=== PATIENT | male | born 1970 | race Caucasian/White ===

== ENCOUNTER 2021-06-29 18:34 | Inpatient (IN) ==
[2021-06-29] MEDS ORDERED: Naloxone 0.4 MG/ML INJ IVP PRN (20:40)
[2021-06-29] MEDS ORDERED: 0.9 % Sodium Chloride 1,000 ML IVC ONE (20:49)
[2021-06-29] MEDS ORDERED: Ondansetron 4 MG/2 ML VIAL IVP PRN (20:50)
[2021-06-29] MEDS ORDERED: *HR* Dextrose 50 % in Water (Syg) 50 ML SYRINGE IVP PRN (21:07)
[2021-06-29] MEDS ORDERED: Dextrose Gel 15 GM/37.5 ML TUBE PO PRN ×2 (21:07)
[2021-06-29] MEDS ORDERED: D5% in Water 1,000 ML IVC PRN (21:07)
[2021-06-29] MEDS ORDERED: Insulin LISPRO 300 UNITS/3 ML VIAL SUBQ SCH (21:15)
[2021-06-29] MEDS ORDERED: Insulin DETEMIR 100 UNIT/ML X5UNITS SUBQ SCH (21:15)
[2021-06-29 21:32] LABS: Basophils % 0.3 %; Eosinophils % 0.1 %; Hemoglobin 7.8 g/dL (12.9-16.9); Lymphocytes % 9.1 %; Red Cell Distribution Width 17.2 % (11.5-14.5); Segmented Neutrophils % 81.7 %
[2021-06-29 21:33] LABS: Basophils # 0.1 K/mcL (0.0-0.2); Immature Granulocytes % 1.7 % (0-4); Lymphocytes # 1.4 K/mcL (0.6-4.6); Mean Corpuscular HGB Conc 27.9 g/dL (31.6-35.5); Mean Corpuscular Hemoglobin 25.6 pg (28.0-33.3); Mean Corpuscular Volume 91.8 fL (83.0-100.0); Mean Platelet Volume 11.4 fL (9.4-12.4); Monocytes # 1.1 K/mcL (0.0-1.3); Monocytes % 7.1 %; Neutrophils # 12.6 K/mcL (1.6-8.9); Platelet Count 267 K/mcL (140-400); Red Blood Count 3.05 M/mcL (4.19-5.50); White Blood Count 15.4 K/mcL (4.3-11.1)
[2021-06-29 21:35] LABS: VBG Ionized Calcium 0.95 mmol/L (1.15-1.35)
[2021-06-29 21:43] LABS: INR 1.7; Prothrombin Time 18.8 Seconds (9.4-12.1)
[2021-06-29 21:45] LABS: Activated Partial Thrombo Time 29.7 Seconds (26.0-36.0)
[2021-06-29 21:47] LABS: Alanine Aminotransferase 127 Units/L (7-52); Albumin 3.2 g/dL (3.5-5.7); Albumin/Globulin Ratio 1.5 (1.1-2.2); Alkaline Phosphatase 62 Units/L (34-104); Aspartate Amino Transferase 107 Units/L (13-39); BUN/Creatinine Ratio 49 (6-26); Bilirubin,Direct 0.2 mg/dL (0.0-0.2); Bilirubin,Indirect 0.6 mg/dL (0.0-1.0); Bilirubin,Total 0.8 mg/dL (0.3-1.0); Blood Urea Nitrogen 49 mg/dL (6-20); Calcium 8.1 mg/dL (8.6-10.3); Carbon Dioxide 13 mEq/L (23-29); Chloride 96 mEq/L (98-107); Globulin 2.2 g/dL (2.4-3.5); Glucose 249 mg/dL (70-105); Osmolality,Calculated 291 (280-300); Phosphorous 5.2 mg/dL (2.7-4.5); Potassium 6.2 mEq/L (3.5-5.1); Sodium 130 mEq/L (136-145); Total Protein 5.4 g/dL (6.4-8.9); eGFR For African Americans > 60 (> 60); eGFR For Non-African Americans > 60 (> 60)
[2021-06-29] MEDS ORDERED: Sodium Bicarbonate 150 MEQ in Water for inj. (sterile) 1,000 ML IVC SCH (22:04)
[2021-06-29 22:19] LABS: Polychromasia 1+ (Not Present)
[2021-06-29] MEDS: Norepinephrine 4 MG/254 ML IV.SOLN IVC SCH (22:30)
[2021-06-29] MEDS ORDERED: Calcium Gluconate 1gm/50mL 1 GM/50 ML BAG IVPB SCH (22:30)
[2021-06-29 22:37] LABS: Estimated Average Glucose 186 mg/dl; Hemoglobin A1C 8.1 %
[2021-06-29] MEDS ORDERED: Artificial Tears SOLN 15 ML BOTTLE BOTH EYES PRN (22:49)
[2021-06-29] MEDS ORDERED: FentaNYL (PF) 1,000 MCG/100 ML IV.SOLN IVC SCH (23:00)
[2021-06-29 23:13] LABS: ABG Base Excess -25 mEq/L (-2 to 3); ABG HCO3 8 mEq/L (21-27); ABG Oxygen Saturation 87 % (95-98); ABG PCO2 52 mmHg (35-45); ABG PH 6.78 pH Units (7.32-7.45); ABG PO2 101 mmHg (85-104); ABG TCO2 9 mEq/L (20-26); Blood Gas Modality AF; Blood Gas VT 450 cc
[2021-06-29] MEDS ORDERED: Phenylephrine 10 MG in 0.9 % Sodium Chloride 250 ML IVC SCH (23:30)
[2021-06-29] MEDS: Insulin Human Regular 10 UNIT in 0.9 % Sodium Chloride 10 ML IV ONE (23:36)
[2021-06-29] MEDS ORDERED: Amiodarone Premix 360 MG/200 ML BAG IVC ONE (23:37)
[2021-06-29] MEDS ORDERED: Amiodarone Premix 150 MG/100 ML BAG IVPB ONE (23:37)
[2021-06-30] MEDS ORDERED: Artificial Tears SOLN 15 ML BOTTLE BOTH EYES SCH
[2021-06-30] MEDS: Phenylephrine 50 MG in 0.9 % Sodium Chloride 250 ML IVC SCH ×2 (00:21→04:02)
[2021-06-30] MEDS ORDERED: Vasopressin 40 UNIT in D5% in Water 100 ML IVC SCH (00:30)
[2021-06-30 00:47] LABS: ABG Base Excess -21 mEq/L (-2 to 3); ABG HCO3 10 mEq/L (21-27); ABG Oxygen Saturation 87 % (95-98); ABG PCO2 48 mmHg (35-45); ABG PH 6.92 pH Units (7.32-7.45); ABG PO2 85 mmHg (85-104); ABG TCO2 11 mEq/L (20-26); Blood Gas Modality AF; Blood Gas VT 450 cc
[2021-06-30] MEDS ORDERED: 0.9 % Sodium Chloride 250 ML ONE (01:15)
[2021-06-30] MEDS: Norepinephrine 4 MG/254 ML IV.SOLN IVC SCH ×3 (01:22→03:53)
[2021-06-30 01:24] LABS: VBG Ionized Calcium 1.18 mmol/L (1.15-1.35)
[2021-06-30 01:38] LABS: BUN/Creatinine Ratio 41 (6-26); Blood Urea Nitrogen 48 mg/dL (6-20); Calcium 9.6 mg/dL (8.6-10.3); Carbon Dioxide 11 mEq/L (23-29); Chloride 98 mEq/L (98-107); Glucose 169 mg/dL (70-105); Lipase 89 Units/L (11-82); Magnesium 2.4 mg/dL (1.6-2.6); Osmolality,Calculated 295 (280-300); Phosphorous 8.4 mg/dL (2.7-4.5); Potassium 6.3 mEq/L (3.5-5.1); Sodium 134 mEq/L (136-145); eGFR For African Americans > 60 (> 60); eGFR For Non-African Americans > 60 (> 60)
[2021-06-30] MEDS ORDERED: 0.9 % Sodium Chloride 1,000 ML ONE (02:47)
[2021-06-30] MEDS: Insulin Human Regular 10 UNIT in 0.9 % Sodium Chloride 10 ML IV ONE (03:04)
[2021-06-30] MEDS ORDERED: EPINEPHrine 5 MG in D5% in Water 250 ML IVC SCH (03:45)
[2021-06-30 04:24] LABS: ABG Base Excess -23 mEq/L (-2 to 3); ABG HCO3 7 mEq/L (21-27); ABG Oxygen Saturation 94 % (95-98); ABG PCO2 38 mmHg (35-45); ABG PH 6.88 pH Units (7.32-7.45); ABG PO2 123 mmHg (85-104); ABG TCO2 8 mEq/L (20-26); Blood Gas Modality AF; Blood Gas VT 450 cc
[2021-06-30] MEDS ORDERED: Pantoprazole 40 MG VIAL IVP SCH (06:00)
[2021-06-30] MEDS ORDERED: Piperacillin/Tazobactam 3.375 GM in 0.9 % Sodium Chloride Mini Bag 100 ML IVPB SCH (08:00)
[2021-06-30] MEDS ORDERED: Chlorhexidine Rinse 15 ML MOUTHWASH MM SCH (09:00)
== END 2021-06-30 05:02 | disposition expired | DRG 378 ==
LOC: ICNU → OBSVTOIN 20:14
PROVIDERS: ADMIT Family Medicine; ATTEND Family Medicine